=== PATIENT | male | born 1975 | race Caucasian/White ===

== ENCOUNTER → 2018-11-08 | Outpatient (CLI) | payer OTHER | END | disposition home or self-care (01) | LOC: CFH 07:41 | PROVIDERS: ATTEND Student in an Organized Health Care Education/Training Program | DX: M51.36 Other intervertebral disc degeneration, lumbar region (principal) | CPT/HCPCS: 72141; 72148 ==

== ENCOUNTER 2019-02-14 10:59 | Day surgery (SDC) | payer OTHER ==
[~2019-02-14] VITALS: Ht 182.9 cm; Wt 88.7 kg
[2019-02-14] MEDS ORDERED: SODIUM CHLORIDE 0.9% 1,000 ML IV SCH (11:30)
[2019-02-14 11:32] VITALS: BP 143/93
[2019-02-14] MEDS ORDERED: LIDOCAINE-MPF 1%, 5ML ONE (13:19)
[2019-02-14 14:37] LABS: GLUCOSE, CSF 57 mg/dL (40-80); TOTAL PROTEIN,CSF 44 mg/dL (15-45)
== END 2019-02-14 16:00 | disposition home or self-care (01) ==
LOC: OUT 10:59 → EDSTATUS 13:00 → OUT 16:00
PROVIDERS: ATTEND Psychiatry & Neurology Neurology
DX: G37.9 Demyelinating disease of central nervous system, unspecified (principal); Z79.899 Other long term (current) drug therapy
CPT/HCPCS: 36415; 62270; 77003; 82040; 82042; 82164; 82784; 82945; 82947; 83873; 84157; 86235; 86618; 86645; 86695; 86696; 86762; 86777; 86778; 87070; 87205; 89051